=== PATIENT | male | born 1965 | race Caucasian/White ===

== ENCOUNTER 2022-04-07 08:14 | Emergency (ER) | payer OTHER, SELFPAY ==
[2022-04-07 08:22] VITALS: BP 129/79; PULSE 83; RESP 20; TEMP 36.8; O2SAT 98
--- NOTE | 2022-04-07 08:33 | ED.EAR ---
HPI - Ear Problem General Chief complaint: Ear Stated complaint: left ear Time Seen by Provider: 04/07/22 08:33 Source: patient, RN notes reviewed and old records reviewed Mode of arrival: ambulatory Limitations: no limitations History of Present Illness HPI Narrative: 56 year old [facility] will week duration of ringing in his left ear and feeling of pressure. Patient states about 3 weeks ago he did have a lot of sinus congestion and drainage was not tested for any illness or treated. Patient reports he has not had COVID vaccinations or flu shot. Patient reports his equilibrium feels a little off,denies any sore throat, fevers, acute cough, or any shortness of breath. MD Complaint: decreased hearing and other (Ear pressure and ringing) Duration: constant Discharge from ear: Reports no Related Data Home Medications Medication Instructions Recorded Confirmed atorvastatin 40 mg tablet 40 mg PO DAILY 04/07/22 04/07/22 fenofibrate 160 mg tablet 160 mg PO DAILY 04/07/22 04/07/22 metoprolol succinate 25 mg 25 mg PO DAILY 04/07/22 04/07/22 tablet,extended release 24 hr ticagrelor 60 mg tablet (Brilinta) 60 mg PO DAILY 04/07/22 04/07/22 Allergies Allergy/AdvReac Type Severity Reaction Status Date / Time No Known Allergies Allergy Verified 04/07/22 08:31 Review of Systems Review of Systems: CONSTITUTIONAL: Denies fever, chills, or sweats. EYES: Denies visual changes, redness, or discharge. ENT: Denies rhinorrhea, congestion, sore throat, reports left ear otalgia with pressure CARDIOVASCULAR: Denies chest pain, palpitations, or edema. RESPIRATORY: Denies cough or dyspnea. GASTROINTESTINAL: Denies abdominal pain, nausea, vomiting, or diarrhea. GENITOURINARY: Denies dysuria or hematuria. SKIN: Denies rash or itching. MUSCULOSKELETAL: Denies back pain, joint pain, or myalgia. NEUROLOGIC: Denies headache, numbness, or weakness. Reports he feels his equilibrium is off PSYCHIATRIC: Denies anxiety or depression. All systems reviewed & are unremarkable except as noted in HPI and below PMFSH Past Medical History Medical History (Updated 04/07/22 @ 08:48 by Monet Wheeler NP) Elevated cholesterol Surgical History Surgical History (Updated 04/07/22 @ 08:45 by Monet Wheeler NP) H/O heart artery stent Social History Social History (Updated 04/07/22 @ 08:46 by Monet Wheeler NP) Smoking status: Current every day smoker Tobacco type: e-cigarettes/vaping Alcohol intake: current Substance use: never Gender identity (if verbalized by the patient): Male Comments At time of signature, agree with nursing past medical, surgical, social and family history. There is no relevant family history pertinent to the presenting complaint Exam Narrative: GENERAL: Well-appearing, well-nourished, and in no acute distress. HEAD: Normocephalic, atraumatic. EYES: PERRLA and EOMI. ENT: Nares clear, no rhinorrhea or epistaxis. Mucous membranes moist. Right TM normal with no redness good light reflex left ear dull light reflex with fluid, throat red no lesions or exudates postnasal drainage noted NECK: Supple. No lymphadenopathy CHEST: Clear to auscultation. No respiratory distress. No cough noted SaO2 98% HEART: Regular rate and rhythm. No murmur heard. Normal peripheral pulses. ABDOMEN: Soft, nontender, nondistended, normal active bowel sounds. EXTREMITIES: Normal range of motion. No edema. SKIN: Warm, dry, no rash. NEURO: No focal deficits. Alert and oriented x3. Course Course Emergency Course: Patient is aware of diagnosis, understands and agrees to treatment plan.? Anticipatory guidance given.? Patient agrees to follow-up as directed and is aware of reasons to seek care at the emergency department. Portions of this record may have been created with voice recognition software Level of Care: Express Care Visit Vital Signs Vital signs: Vital Signs Temperature 36.8 C 04/07/22 0
== END 2022-04-07 08:55 | disposition home or self-care (01) ==
PROVIDERS: Emergency Provider Registered Nurse
DX: H69.92 Unspecified Eustachian tube disorder, left ear (principal); F17.290 Nicotine dependence, other tobacco product, uncomplicated; E78.00 Pure hypercholesterolemia, unspecified; I25.10 Atherosclerotic heart disease of native coronary artery without angina pectoris; Z95.5 Presence of coronary angioplasty implant and graft
CPT/HCPCS: 99213; G0463